=== PATIENT | male | born 1985 | race Two or more races ===

== ENCOUNTER 2023-08-19 20:12 | Inpatient (IN) | payer OTHER ==
[~2023-08-19] VITALS: Ht 172.7 cm; Wt 54.4 kg
[2023-08-19] MEDS ORDERED: PREDNISONE10 M2 PO (20:47)
[2023-08-20 00:16] LABS: HEMATOCRIT 42.6 % (39.0-48.0); HEMOGLOBIN 14.5 g/dL (13-16.00); MEAN CELL VOLUME 78.8 fL (80.0-100.00); MEAN CORPUSCULAR HEMOGLOBIN 26.8 pg (27.00-32.0); PLATELET COUNT 281 K/uL (150-450); RED BLOOD COUNT 5.41 M/uL (4.00-6.00); RED CELL DISTRIBUTION WIDTH 14.4 % (11.5-14.5)
[2023-08-20 00:33] LABS: INR 1.04; PROTHROMBIN TIME 10.9 SECONDS (9.0-11.5)
[2023-08-20 00:37] LABS: BILIRUBIN TOTAL 0.63 mg/dL (0.3-1.2); CALCIUM 8.9 mg/dL (8.5-10.1); CREATININE SERUM 0.72 mg/dL (0.70-1.30); GFR 123.52; GLOBULINA 3.9 G/DL (2.4-3.5); POTASSIUM 3.35 mEq/L (3.5-5.1); TOTAL PROTEIN 6.9 gm/dL (6.4-8.2)
[2023-08-20 00:50] LABS: URINE APPEARANCE Clear; URINE BILIRRUBIN Negative (NEGATIVE); URINE BLOOD Small; URINE COLOR Dark Yellow; URINE GLUCOSE Negative (NEGATIVE); URINE LEUKOCYTE Negative; URINE NITRATE Negative
[2023-08-20 00:53] LABS: URINE BACTERIA 15.1 uL (0.0-1933); URINE EPITHELIAL CELLS 6.9 uL (0.0-38.8); URINE RBC 75.3 uL (0.0-20.8); URINE WBC 3.7 uL (0.0-23.2)
[2023-08-20 01:12] LABS: URINE PROTEIN 100 (NEGATIVE)
[2023-08-20 20:46] LABS: ob POSITIVE (NEGATIVE)
[2023-08-21 16:12] LABS: MAGNESIUM 2.1 mg/dL (1.8-2.4); PROSTATIC SPECIFIC ANTIGEN 0.722 NG/ML (0.010-4.00)
[2023-08-21 17:56] LABS: CALCIUM 9.1 mg/dL (8.5-10.1); CHOL HDL RATIO 1.7 (0-5.0); CREATININE SERUM 0.62 mg/dL (0.70-1.30); GFR 146.78; POTASSIUM 4.2 mEq/L (3.5-5.1)
[2023-08-22 07:33] LABS: CALCIUM 8.7 mg/dL (8.5-10.1); CREATININE SERUM 0.56 mg/dL (0.70-1.30); GFR 165.08; POTASSIUM 3.73 mEq/L (3.5-5.1)
[2023-08-26 05:43] LABS: GIARDIA LAMBLIA EIA Negative (Negative); chla t Negative (Negative); neiss Negative (Negative)
[2023-08-26 05:43] LABS: COMPLEMENT C3 67 mg/dL (82-167); COMPLEMENT C4 5 mg/dL (12-38)
== END 2023-08-26 14:46 | disposition home or self-care (01) | DRG 392 ==
LOC: ER 20:13 → SEC-K 08-20 18:05 → MEDI 08-20 18:05
PROVIDERS: General Practice; Internal Medicine; Internal Medicine Infectious Disease; ADMIT Internal Medicine; ATTEND Internal Medicine
DX: K52.9 Noninfective gastroenteritis and colitis, unspecified (principal); N13.30 Unspecified hydronephrosis; M32.9 Systemic lupus erythematosus, unspecified; K21.9 Gastro-esophageal reflux disease without esophagitis; N40.0 Benign prostatic hyperplasia without lower urinary tract symptoms